=== PATIENT | male | born 1960 | race Caucasian/White ===

== ENCOUNTER 2018-03-01 14:27 | Emergency (ER) | payer MEDICARE, MEDICAID ==
[~2018-03-01] VITALS: Ht 177.8 cm; Wt 70.0 kg
[2018-03-01 14:33] VITALS: BP 109/78
== END 2018-03-01 15:24 | disposition left against medical advice (07) ==
LOC: ED 15:18
DX: F10.120 Alcohol abuse with intoxication, uncomplicated (principal); I10 Essential (primary) hypertension
CPT/HCPCS: 99283

== ENCOUNTER 2018-04-01 16:26 | Inpatient (IN) | payer MEDICARE, MEDICAID ==
[~2018-04-01] VITALS: Ht 170.2 cm; Wt 58.8 kg
[2018-04-01] MEDS ORDERED: SODIUM CHLORIDE FLUSH 10ML SYR IVF ONE (16:30)
[2018-04-01] MEDS ORDERED: FUROSEMIDE 40 MG/4 ML IVP ONE (16:30)
[2018-04-01] MEDS ORDERED: methylPREDNISolone SOD SUCC 125 MG/2 ML IVP ONE (16:30)
[2018-04-01] MEDS ORDERED: FUROSEMIDE 40 MG/4 ML ONE (16:45)
[2018-04-01] MEDS ORDERED: methylPREDNISolone SOD SUCC 125 MG/2 ML ONE (16:46)
[2018-04-01 17:17] LABS: BASOPHILS # (AUTO) 0.01 x10^3/uL (0-0.1); BASOPHILS % (AUTO) 0 % (0-1); EOSINOPHILS # (AUTO) 0.03 x10^3/uL (0-0.4); EOSINOPHILS % (AUTO) 0 % (1-7); LYMPHOCYTES # (AUTO) 1.56 x10^3/uL (1-3.4); LYMPHOCYTES % (AUTO) 19 % (22-44); MD NO; MEAN CORPUSCULAR HEMOGLOBIN 27.5 pg (27.5-34.5); MEAN CORPUSCULAR HGB CONC 32.1 g/dL (33.2-36.2); MEAN CORPUSCULAR VOLUME 85.9 fL (81-97); MEAN PLATELET VOLUME 8.1 fL (7.4-10.4); MONOCYTES # (AUTO) 0.63 x10^3/uL (0.2-0.8); MONOCYTES % (AUTO) 8 % (2-9); NEUTROPHILS # (AUTO) 6.15 x10^3/uL (1.8-6.8); NEUTROPHILS % (AUTO) 73 % (42-75); PLATELET COUNT 355 x10^3/uL (130-400); RED BLOOD COUNT 4.68 x10^6/uL (4.38-5.82); RED CELL DISTRIBUTION WIDTH 21.1 % (9.4-14.8)
[2018-04-01 17:20] LABS: INTERNATIONAL NORMALIZED RATIO 1.24 (0.93-1.1); PROTHROMBIN TIME 12.7 Seconds (9.6-11.5)
[2018-04-01] MEDS ORDERED: ATOR40TA78 PO (17:20)
[2018-04-01] MEDS ORDERED: PRED20TA PO (17:20)
[2018-04-01] MEDS ORDERED: SPIR25TA3 PO (17:20)
[2018-04-01] MEDS ORDERED: FURO20TA3 PO (17:20)
[2018-04-01] MEDS ORDERED: CARV-39 PO (17:20)
[2018-04-01] MEDS ORDERED: IPRA3AMP NEB (17:20)
[2018-04-01] MEDS ORDERED: BUDE10.2 PO (17:20)
[2018-04-01] MEDS ORDERED: RIVA20TA PO (17:20)
[2018-04-01] MEDS ORDERED: LISI-170 PO (17:20)
[2018-04-01] MEDS ORDERED: TIOT18CA INH (17:20)
[2018-04-01 17:22] LABS: ALANINE AMINOTRANSFERASE 86 U/L (12-78); ALBUMIN 2.9 g/dL (3.4-5.0); ANION GAP 8 mmol/L (5-15); CHLORIDE 103 mmol/L (98-107); CREATININE 0.94 mg/dL (0.7-1.3)
[2018-04-01 17:27] LABS: ALKALINE PHOSPHATASE 225 U/L (45-117); BILIRUBIN,TOTAL 2.5 mg/dL (0.2-1.0); TOTAL PROTEIN 6.3 g/dL (6.4-8.2); TROPONIN I 0.119 ng/mL (0.000-0.045)
[2018-04-01] MEDS ORDERED: ASPIRIN 81 MG TABLET CHEW ONE (17:40)
[2018-04-01] MEDS ORDERED: ASPIRIN 81 MG TABLET CHEW PO ONE (18:00)
[2018-04-01] MEDS ORDERED: Enoxaparin 1 mg/kg protocol SQ SCH (18:00)
[2018-04-01] MEDS ORDERED: ENOXAPARIN 40 MG/0.4 ML SQ SCH (18:30)
[2018-04-01] MEDS ORDERED: POLYETHYLENE GLYCOL 17 GM PACKET PO PRN (18:30)
[2018-04-01] MEDS ORDERED: BISACODYL 10 MG SUPP PR PRN (18:30)
[2018-04-01] MEDS ORDERED: ONDANSETRON 2MG/ML, 2ML IVPush PRN (18:30)
[2018-04-01] MEDS ORDERED: DOCUSATE 100 MG CAPSULE PO PRN (18:30)
[2018-04-01] MEDS ORDERED: hydrALAzine 20 MG/ML, 1ML IVPush PRN (18:30)
[2018-04-01 18:42] VITALS: BP 131/96
[2018-04-01] MEDS ORDERED: ENOXAPARIN 60 MG/0.6 ML SQ ONE (19:00)
[2018-04-01] MEDS ORDERED: ALBUTEROL/IPRATROPIUM 2.5MG/0.5MG, 3 ML NPPB PRN (20:00)
[2018-04-01] MEDS: ALBUTEROL/IPRATROPIUM 2.5MG/0.5MG, 3 ML NPPB SCH (20:00)
[2018-04-01 20:12] LABS: HEMOGLOBIN A1C 7.2 % (4.2-6.3)
[2018-04-01] MEDS: ATORVASTATIN 40 MG TABLET PO SCH (20:48)
[2018-04-01] MEDS: CARVEDILOL 25 MG TABLET PO SCH (20:49)
[2018-04-01] MEDS: SODIUM CHLORIDE FLUSH 10ML SYR IVF SCH (20:49)
[2018-04-01] MEDS ORDERED: ALBUTEROL/IPRATROPIUM 2.5MG/0.5MG, 3 ML NEB SCH (21:00)
[2018-04-01] MEDS: Budesonide/Formoterol Fumarate (Symbicort 160-4.5 Mcg Inhaler PO SCH (21:00)
[2018-04-01 21:09] LABS: TROPONIN I 0.104 ng/mL (0.000-0.045)
[2018-04-02 01:47] VITALS: BP 100/70
[2018-04-02 03:22] LABS: ALANINE AMINOTRANSFERASE 78 U/L (12-78); ALBUMIN 2.6 g/dL (3.4-5.0); ANION GAP 6 mmol/L (5-15); CALCIUM 8.9 mg/dL (8.5-10.1); CHLORIDE 101 mmol/L (98-107); CREATININE 1.01 mg/dL (0.7-1.3)
[2018-04-02 03:26] LABS: ALKALINE PHOSPHATASE 202 U/L (45-117); BILIRUBIN,TOTAL 1.7 mg/dL (0.2-1.0); TOTAL PROTEIN 5.9 g/dL (6.4-8.2); TROPONIN I 0.097 ng/mL (0.000-0.045)
[2018-04-02 04:27] LABS: BASOPHILS % (AUTO) 0 % (0-1); EOSINOPHILS % (AUTO) 0 % (1-7); LYMPHOCYTES # (AUTO) 0.53 x10^3/uL (1-3.4); LYMPHOCYTES % (AUTO) 9 % (22-44); MD NO; MEAN CORPUSCULAR HEMOGLOBIN 27.7 pg (27.5-34.5); MEAN CORPUSCULAR HGB CONC 32.4 g/dL (33.2-36.2); MEAN CORPUSCULAR VOLUME 85.6 fL (81-97); MONOCYTES # (AUTO) 0.03 x10^3/uL (0.2-0.8); MONOCYTES % (AUTO) 1 % (2-9); NEUTROPHILS # (AUTO) 5.44 x10^3/uL (1.8-6.8); NEUTROPHILS % (AUTO) 91 % (42-75); PLATELET COUNT 315 x10^3/uL (130-400); RED BLOOD COUNT 4.43 x10^6/uL (4.38-5.82); RED CELL DISTRIBUTION WIDTH 20.7 % (9.4-14.8)
[2018-04-02] MEDS: ALBUTEROL/IPRATROPIUM 2.5MG/0.5MG, 3 ML NPPB SCH ×4 (06:43→21:18)
[2018-04-02 07:28] VITALS: BP 113/77
[2018-04-02] MEDS: Budesonide/Formoterol Fumarate (Symbicort 160-4.5 Mcg Inhaler PO SCH (07:45)
[2018-04-02] MEDS: FUROSEMIDE 40 MG/4 ML IV SCH ×2 (07:50→16:54)
[2018-04-02] MEDS ORDERED: Tiotropium Bromide** (Spiriva**) 18 MCG INH SCH (09:00)
[2018-04-02] MEDS: FLUTICASONE/VILANTEROL 200-25MCG/INH INH SCH (09:44)
[2018-04-02] MEDS: LISINOPRIL 20 MG TABLET PO SCH (09:44)
[2018-04-02] MEDS: RIVAROXABAN 20 MG TABLET PO SCH (09:44)
[2018-04-02] MEDS: SODIUM CHLORIDE FLUSH 10ML SYR IVF SCH ×3 (09:45→20:16)
[2018-04-02] MEDS: CARVEDILOL 25 MG TABLET PO SCH ×2 (09:45→20:13)
[2018-04-02] MEDS: POTASSIUM CHLORIDE 20 MEQ PACKET PO SCH (09:45)
[2018-04-02] MEDS: SPIRONOLACTONE 25 MG TABLET PO SCH (09:49)
[2018-04-02] MEDS ORDERED: NICOTINE 14MG/24 HR PATCH.TD24 TD ONE (10:00)
[2018-04-02] MEDS ORDERED: IPRATROPIUM 0.5 MG/2.5 ML INHA NPPB SCH (11:00)
[2018-04-02 13:30] VITALS: BP 103/78
[2018-04-02] MEDS ORDERED: LIDODERM 5% PATCH TD ONE (14:52)
[2018-04-02] MEDS: LIDODERM 5% PATCH TD SCH (14:54)
[2018-04-02] MEDS: ACETAMINOPHEN 325 MG TABLET PO PRN (14:54)
[2018-04-02] MEDS ORDERED: GLUCAGON 1 MG IM PRN (19:00)
[2018-04-02] MEDS ORDERED: DEXTROSE 4 GM TAB.CHEW PO PRN (19:00)
[2018-04-02] MEDS ORDERED: DEXTROSE 50%, 50ML SYRINGE IVPush PRN (19:00)
[2018-04-02 19:18] VITALS: BP 101/68
[2018-04-02 20:10] VITALS: BP 112/75
[2018-04-02] MEDS: ATORVASTATIN 40 MG TABLET PO SCH (20:13)
[2018-04-02] MEDS: INSULIN LISPRO 100 UNITS/ML, PEN SQ-INSULIN SCH (21:11)
[2018-04-03 02:13] VITALS: BP 105/67
[2018-04-03 05:37] LABS: ALBUMIN 2.6 g/dL (3.4-5.0); ANION GAP 7 mmol/L (5-15); CALCIUM 8.5 mg/dL (8.5-10.1); CHLORIDE 100 mmol/L (98-107)
[2018-04-03 05:38] LABS: BASOPHILS # (AUTO) 0.02 x10^3/uL (0-0.1); BASOPHILS % (AUTO) 0 % (0-1); EOSINOPHILS # (AUTO) 0.07 x10^3/uL (0-0.4); EOSINOPHILS % (AUTO) 1 % (1-7); LYMPHOCYTES # (AUTO) 1.67 x10^3/uL (1-3.4); LYMPHOCYTES % (AUTO) 13 % (22-44); MD NO; MEAN CORPUSCULAR HEMOGLOBIN 27.1 pg (27.5-34.5); MEAN CORPUSCULAR HGB CONC 31.6 g/dL (33.2-36.2); MEAN CORPUSCULAR VOLUME 85.6 fL (81-97); MEAN PLATELET VOLUME 8.2 fL (7.4-10.4); MONOCYTES # (AUTO) 0.83 x10^3/uL (0.2-0.8); MONOCYTES % (AUTO) 7 % (2-9); NEUTROPHILS # (AUTO) 10.11 x10^3/uL (1.8-6.8); NEUTROPHILS % (AUTO) 80 % (42-75); PLATELET COUNT 310 x10^3/uL (130-400); RED BLOOD COUNT 4.42 x10^6/uL (4.38-5.82); RED CELL DISTRIBUTION WIDTH 20.6 % (9.4-14.8)
[2018-04-03 05:42] LABS: ALANINE AMINOTRANSFERASE 64 U/L (12-78); ALKALINE PHOSPHATASE 183 U/L (45-117); BILIRUBIN,TOTAL 0.9 mg/dL (0.2-1.0); CREATININE 0.87 mg/dL (0.7-1.3); TOTAL PROTEIN 5.5 g/dL (6.4-8.2)
[2018-04-03] MEDS: ALBUTEROL/IPRATROPIUM 2.5MG/0.5MG, 3 ML NPPB SCH ×4 (06:28→19:14)
[2018-04-03 07:15] VITALS: BP 108/75
[2018-04-03] MEDS: FUROSEMIDE 40 MG/4 ML IV SCH ×2 (08:44→16:38)
[2018-04-03] MEDS: POTASSIUM CHLORIDE 20 MEQ PACKET PO SCH (08:44)
[2018-04-03] MEDS: INSULIN LISPRO 100 UNITS/ML, PEN SQ-INSULIN SCH ×4 (08:44→22:19)
[2018-04-03] MEDS: SODIUM CHLORIDE FLUSH 10ML SYR IVF SCH ×4 (08:45→22:10)
[2018-04-03] MEDS: FLUTICASONE/VILANTEROL 200-25MCG/INH INH SCH (08:45)
[2018-04-03] MEDS: CARVEDILOL 25 MG TABLET PO SCH ×2 (08:46→22:11)
[2018-04-03] MEDS: SPIRONOLACTONE 25 MG TABLET PO SCH (08:46)
[2018-04-03] MEDS: RIVAROXABAN 20 MG TABLET PO SCH (08:46)
[2018-04-03] MEDS: LISINOPRIL 20 MG TABLET PO SCH (08:46)
[2018-04-03 13:50] VITALS: BP 101/75
[2018-04-03] MEDS ORDERED: NICOTINE 14MG/24 HR PATCH.TD24 TD ONE (14:30)
[2018-04-03 19:26] VITALS: BP 124/79
[2018-04-03] MEDS ORDERED: INSULIN GLARGINE 100 UNITS/ML, PEN SQ-INSULIN SCH (21:00)
[2018-04-03] MEDS: ATORVASTATIN 40 MG TABLET PO SCH (22:11)
[2018-04-03 22:15] VITALS: BP 122/81
[2018-04-03] MEDS: LIDODERM 5% PATCH TD SCH (22:20)
[2018-04-04 01:33] VITALS: BP 115/70
[2018-04-04 05:59] LABS: BASOPHILS % (AUTO) 0 % (0-1); EOSINOPHILS # (AUTO) 0.06 x10^3/uL (0-0.4); EOSINOPHILS % (AUTO) 1 % (1-7); LYMPHOCYTES # (AUTO) 1.86 x10^3/uL (1-3.4); LYMPHOCYTES % (AUTO) 15 % (22-44); MD NO; MEAN CORPUSCULAR HEMOGLOBIN 27.1 pg (27.5-34.5); MEAN CORPUSCULAR HGB CONC 31.8 g/dL (33.2-36.2); MEAN CORPUSCULAR VOLUME 85.3 fL (81-97); MEAN PLATELET VOLUME 8.1 fL (7.4-10.4); MONOCYTES % (AUTO) 7 % (2-9); NEUTROPHILS # (AUTO) 9.38 x10^3/uL (1.8-6.8); NEUTROPHILS % (AUTO) 78 % (42-75); PLATELET COUNT 276 x10^3/uL (130-400); RED BLOOD COUNT 4.51 x10^6/uL (4.38-5.82); RED CELL DISTRIBUTION WIDTH 21.1 % (9.4-14.8)
[2018-04-04 06:11] LABS: CHLORIDE 97 mmol/L (98-107)
[2018-04-04 06:22] LABS: ALANINE AMINOTRANSFERASE 56 U/L (12-78); ALBUMIN 2.4 g/dL (3.4-5.0); ALKALINE PHOSPHATASE 172 U/L (45-117); ANION GAP 8 mmol/L (5-15); BILIRUBIN,TOTAL 0.8 mg/dL (0.2-1.0); CALCIUM 8.6 mg/dL (8.5-10.1); CREATININE 0.85 mg/dL (0.7-1.3); TOTAL PROTEIN 5.3 g/dL (6.4-8.2)
[2018-04-04 08:40] VITALS: BP 110/71
[2018-04-04] MEDS: FUROSEMIDE 40 MG/4 ML IV SCH ×2 (08:48→16:28)
[2018-04-04] MEDS: LISINOPRIL 20 MG TABLET PO SCH (08:48)
[2018-04-04] MEDS: RIVAROXABAN 20 MG TABLET PO SCH (08:48)
[2018-04-04] MEDS: POTASSIUM CHLORIDE 20 MEQ PACKET PO SCH (08:48)
[2018-04-04] MEDS: SPIRONOLACTONE 25 MG TABLET PO SCH (08:48)
[2018-04-04] MEDS: SODIUM CHLORIDE FLUSH 10ML SYR IVF SCH ×4 (08:49→20:54)
[2018-04-04] MEDS: CARVEDILOL 25 MG TABLET PO SCH ×2 (08:49→20:52)
[2018-04-04] MEDS: INSULIN LISPRO 100 UNITS/ML, PEN SQ-INSULIN SCH ×4 (08:56→20:53)
[2018-04-04] MEDS: FLUTICASONE/VILANTEROL 200-25MCG/INH INH SCH (08:57)
[2018-04-04] MEDS: ALBUTEROL/IPRATROPIUM 2.5MG/0.5MG, 3 ML NPPB SCH ×4 (09:00→19:29)
[2018-04-04 11:17] VITALS: BP 101/64
[2018-04-04] MEDS: LIDODERM 5% PATCH TD SCH (16:29)
[2018-04-04] MEDS: ACETAMINOPHEN 325 MG TABLET PO PRN (16:35)
[2018-04-04 17:04] VITALS: BP 111/82
[2018-04-04] MEDS: ATORVASTATIN 40 MG TABLET PO SCH (20:51)
[2018-04-04] MEDS ORDERED: INSULIN GLARGINE 100 UNITS/ML, PEN SQ-INSULIN SCH (21:00)
[2018-04-04 21:20] VITALS: BP 105/70
[2018-04-05 01:45] VITALS: BP 112/73
[2018-04-05 06:41] LABS: ALBUMIN 2.5 g/dL (3.4-5.0); ANION GAP 6 mmol/L (5-15); CALCIUM 8.6 mg/dL (8.5-10.1); CHLORIDE 99 mmol/L (98-107)
[2018-04-05 06:43] LABS: CREATININE 0.68 mg/dL (0.7-1.3)
[2018-04-05] MEDS: INSULIN LISPRO 100 UNITS/ML, PEN SQ-INSULIN SCH ×2 (07:00→11:00)
[2018-04-05] MEDS ORDERED: GLIP5TAB10 PO (07:30)
[2018-04-05] MEDS ORDERED: FURO40TA6 PO (07:38)
[2018-04-05] MEDS: ALBUTEROL/IPRATROPIUM 2.5MG/0.5MG, 3 ML NPPB SCH ×2 (08:02→11:00)
[2018-04-05] MEDS: SODIUM CHLORIDE FLUSH 10ML SYR IVF SCH ×2 (09:00→09:46)
[2018-04-05] MEDS: FLUTICASONE/VILANTEROL 200-25MCG/INH INH SCH (09:00)
[2018-04-05] MEDS: SPIRONOLACTONE 25 MG TABLET PO SCH (09:45)
[2018-04-05] MEDS: POTASSIUM CHLORIDE 20 MEQ PACKET PO SCH (09:45)
[2018-04-05] MEDS: RIVAROXABAN 20 MG TABLET PO SCH (09:45)
[2018-04-05] MEDS: FUROSEMIDE 40 MG/4 ML IV SCH (09:45)
[2018-04-05] MEDS: CARVEDILOL 25 MG TABLET PO SCH (09:45)
[2018-04-05] MEDS: LISINOPRIL 20 MG TABLET PO SCH (09:45)
[2018-04-05 10:15] VITALS: BP 108/76
== END 2018-04-05 14:18 | DRG 291 ==
LOC: ED 17:38 → EDIP 17:47 → 5SO 18:41
PROVIDERS: ADMIT Emergency Medicine; ATTEND Hospitalist
DX: I11.0 Hypertensive heart disease with heart failure (principal); J96.21 Acute and chronic respiratory failure with hypoxia; E43 Unspecified severe protein-calorie malnutrition; E87.2 Acidosis; I24.8 Other forms of acute ischemic heart disease; J98.11 Atelectasis; E11.649 Type 2 diabetes mellitus with hypoglycemia without coma; Z68.20 Body mass index [BMI] 20.0-20.9, adult; E78.5 Hyperlipidemia, unspecified; F17.210 Nicotine dependence, cigarettes, uncomplicated; I25.10 Atherosclerotic heart disease of native coronary artery without angina pectoris; I25.2 Old myocardial infarction; J44.9 Chronic obstructive pulmonary disease, unspecified; K76.1 Chronic passive congestion of liver; Z79.82 Long term (current) use of aspirin; Z82.49 Family history of ischemic heart disease and other diseases of the circulatory system; Z83.3 Family history of diabetes mellitus; Z86.711 Personal history of pulmonary embolism; Z91.19 Patient's noncompliance with other medical treatment and regimen; I50.43 Acute on chronic combined systolic (congestive) and diastolic (congestive) heart failure; X58.XXXA Exposure to other specified factors, initial encounter; Y93.89 Activity, other specified; Y92.89 Other specified places as the place of occurrence of the external cause; Y99.8 Other external cause status
CPT/HCPCS: 36415; 71045; 71046; 71250; 80048; 80053; 82040; 82962; 83036; 83605; 83735; 83880; 84100; 84484; 85025; 85610; 85730; 93005; 94640; 96374; 96375; C8929; J1940; J7620; J1815; J2930

== ENCOUNTER 2018-08-31 07:09 | Inpatient (IN) | payer MEDICARE, MEDICAID ==
[~2018-08-31] VITALS: Ht 170.2 cm; Wt 60.6 kg
[~2018-08-31 07:09] MED LIST: ATOR40TA78 PO; BUDE10.2 PO; CARV-39 PO; FURO20TA3 PO; FURO40TA6 PO; GLIP5TAB10 PO; IPRA3AMP30 NEB; LISI-170 PO; PRED20TA PO; RIVA20TA PO; SPIR25TA5 PO; TIOT18CA INH
[2018-08-31] MEDS ORDERED: SODIUM CHLORIDE FLUSH 10ML SYR IVF ONE (07:30)
[2018-08-31 07:59] LABS: MEAN CORPUSCULAR HEMOGLOBIN 26.5 pg (27.5-34.5); MEAN CORPUSCULAR HGB CONC 31.4 g/dL (33.2-36.2); MEAN CORPUSCULAR VOLUME 84.3 fL (81-97); MEAN PLATELET VOLUME 8.2 fL (7.4-10.4); PLATELET COUNT 308 x10^3/uL (130-400); RED BLOOD COUNT 4.27 x10^6/uL (4.38-5.82); RED CELL DISTRIBUTION WIDTH 21.1 % (9.4-14.8)
[2018-08-31 08:03] LABS: INTERNATIONAL NORMALIZED RATIO 1.1 (0.93-1.1); PROTHROMBIN TIME 11.4 Seconds (9.6-11.5)
[2018-08-31 08:06] LABS: ALBUMIN 3.6 g/dL (3.4-5.0); ANION GAP 11 mmol/L (5-15); CALCIUM 9.2 mg/dL (8.5-10.1); CHLORIDE 100 mmol/L (98-107)
[2018-08-31 08:11] LABS: ALANINE AMINOTRANSFERASE 33 U/L (12-78); ALKALINE PHOSPHATASE 220 U/L (45-117); BILIRUBIN,TOTAL 2.6 mg/dL (0.2-1.0); CREATININE 1.11 mg/dL (0.7-1.3); TOTAL PROTEIN 7.3 g/dL (6.4-8.2); TROPONIN I 0.095 ng/mL (0.000-0.045)
[2018-08-31] MEDS ORDERED: FUROSEMIDE 20 MG/2 ML ONE (08:17)
[2018-08-31] MEDS ORDERED: FUROSEMIDE 40 MG/4 ML ONE (08:17)
[2018-08-31 08:21] LABS: MD YES
[2018-08-31 08:23] LABS: BAND#(MANUAL) 0.11 x10^3/uL; BANDS%(MANUAL) 1 % (0-7); EOS#(MANUAL) 0.11 x10^3/uL (0.0-0.4); EOS% (MANUAL) 1 % (1-7); LYMPH#(MANUAL) 0.66 x10^3/uL (1-3.4); LYMPHS% (MANUAL) 6 % (22-44); MONOS#(MANUAL) 0.55 x10^3/uL (0.3-2.7); MONOS% (MANUAL) 5 % (2-9); NRBC % (MANUAL) 1 % (0-1); SEG#(MANUAL) 9.57 x10^3/uL (1.8-6.8); SEGS% (MANUAL) 87 % (42-75)
[2018-08-31 08:24] LABS: ANISOCYTOSIS 1+; HYPOCHROMIA 1+; POLYCHROMASIA 1+
[2018-08-31 08:25] LABS: OVALOCYTES 1+
[2018-08-31 08:26] LABS: <PLATELET ESTIMATE> ADEQUATE; <PLT MORPHOLOGY> NORMAL PLT MORPH
[2018-08-31] MEDS ORDERED: FUROSEMIDE 100 MG/10 ML IV ONE (08:30)
[2018-08-31] MEDS ORDERED: SODIUM CHLORIDE FLUSH 10ML SYR IVF PRN (09:00)
[2018-08-31 10:00] VITALS: BP 131/82
[2018-08-31] MEDS ORDERED: ONDANSETRON ODT 4 MG PO PRN (11:00)
[2018-08-31] MEDS: INSULIN LISPRO 100 UNITS/ML, PEN SQ-INSULIN SCH ×3 (11:00→22:04)
[2018-08-31] MEDS ORDERED: ONDANSETRON 2MG/ML, 2ML IVPush PRN (11:00)
[2018-08-31] MEDS ORDERED: ALBUTEROL/IPRATROPIUM 2.5MG/0.5MG, 3 ML NPPB PRN (11:30)
[2018-08-31] MEDS ORDERED: ALBUTEROL/IPRATROPIUM 2.5MG/0.5MG, 3 ML NPPB SCH (11:30)
[2018-08-31 12:52] VITALS: BP 123/79
[2018-08-31] MEDS ORDERED: ASPI-650 PO (13:24)
[2018-08-31] MEDS ORDERED: HYDR10TA4 PO (13:24)
[2018-08-31] MEDS ORDERED: SITA50TA PO (13:24)
[2018-08-31] MEDS ORDERED: FURO20TA3 PO (13:24)
[2018-08-31 13:31] LABS: TROPONIN I 0.096 ng/mL (0.000-0.045)
[2018-08-31] MEDS: ALBUTEROL/IPRATROPIUM 2.5MG/0.5MG, 3 ML NPPB SCH ×2 (15:00→21:52)
[2018-08-31] MEDS ORDERED: CARVEDILOL 25 MG TABLET ONE ×2 (15:30→15:31)
[2018-08-31] MEDS ORDERED: SPIRONOLACTONE 25 MG TABLET ONE (15:30)
[2018-08-31] MEDS ORDERED: LISINOPRIL 20 MG TABLET ONE (15:30)
[2018-08-31] MEDS: hydrOXyzine 10MG TABLET PO PRN ×2 (15:34→21:37)
[2018-08-31] MEDS: SPIRONOLACTONE 25 MG TABLET PO SCH (15:34)
[2018-08-31] MEDS: LISINOPRIL 20 MG TABLET PO SCH (15:34)
[2018-08-31] MEDS: CARVEDILOL 25 MG TABLET PO SCH ×2 (15:35→21:36)
[2018-08-31] MEDS ORDERED: FUROSEMIDE 40 MG/4 ML IV SCH (17:00)
[2018-08-31 19:26] LABS: TROPONIN I 0.103 ng/mL (0.000-0.045)
[2018-08-31 19:47] VITALS: BP 93/69
[2018-08-31] MEDS ORDERED: CARVEDILOL 25 MG TABLET PO SCH (21:00)
[2018-08-31] MEDS: ATORVASTATIN 40 MG TABLET PO SCH (21:37)
[2018-09-01 01:01] VITALS: BP 93/69
[2018-09-01] MEDS ORDERED: ZOLPIDEM 10MG TABLET PO ONE (01:30)
[2018-09-01 04:17] VITALS: BP 100/65
[2018-09-01 05:05] LABS: MEAN CORPUSCULAR HEMOGLOBIN 26.5 pg (27.5-34.5); MEAN CORPUSCULAR HGB CONC 31.8 g/dL (33.2-36.2); MEAN CORPUSCULAR VOLUME 83.3 fL (81-97); MEAN PLATELET VOLUME 8.2 fL (7.4-10.4); PLATELET COUNT 235 x10^3/uL (130-400); RED BLOOD COUNT 3.73 x10^6/uL (4.38-5.82); RED CELL DISTRIBUTION WIDTH 20.9 % (9.4-14.8)
[2018-09-01 05:12] LABS: ALBUMIN 3.1 g/dL (3.4-5.0); ANION GAP 10 mmol/L (5-15); CALCIUM 8.8 mg/dL (8.5-10.1); CHLORIDE 99 mmol/L (98-107)
[2018-09-01 05:25] LABS: ALANINE AMINOTRANSFERASE 30 U/L (12-78); ALKALINE PHOSPHATASE 222 U/L (45-117); BILIRUBIN,TOTAL 1.5 mg/dL (0.2-1.0); CHOL/HDL RATIO 2.6; CHOLESTEROL, TOTAL 166 mg/dL (140-239); CREATININE 0.96 mg/dL (0.7-1.3); HDL CHOL % 38 % (26-37); HDL CHOLESTEROL (DIRECT) 63 mg/dL (40-60); LDL CHOLESTEROL,CALCULATED 78 mg/dL (54-169); LDL/HDL RATIO 1.2 (0.5-3.0); TOTAL PROTEIN 6.2 g/dL (6.4-8.2); TRIGLYCERIDES 125 mg/dL (50-200); VLDL CHOLESTEROL 25 mg/dL (0-25)
[2018-09-01 05:42] LABS: BASOPHILS # (AUTO) 0.06 x10^3/uL (0-0.1); BASOPHILS % (AUTO) 1 % (0-1); EOSINOPHILS # (AUTO) 0.17 x10^3/uL (0-0.4); EOSINOPHILS % (AUTO) 2 % (1-7); LYMPHOCYTES # (AUTO) 2.53 x10^3/uL (1-3.4); LYMPHOCYTES % (AUTO) 29 % (22-44); MD SCAN; MONOCYTES # (AUTO) 0.73 x10^3/uL (0.2-0.8); MONOCYTES % (AUTO) 8 % (2-9); NEUTROPHILS % (AUTO) 60 % (42-75)
[2018-09-01] MEDS: INSULIN LISPRO 100 UNITS/ML, PEN SQ-INSULIN SCH ×4 (07:00→21:00)
[2018-09-01 07:07] VITALS: BP 95/67
[2018-09-01] MEDS: ALBUTEROL/IPRATROPIUM 2.5MG/0.5MG, 3 ML NPPB SCH ×4 (07:30→19:10)
[2018-09-01] MEDS: ASPIRIN 325 MG TABLET EC PO SCH (08:42)
[2018-09-01] MEDS ORDERED: RIVAROXABAN 20 MG TABLET PO SCH (09:00)
[2018-09-01] MEDS ORDERED: TEMPLATE NON-FORMULARY MED. (Tiotropium Bromide** (Spiriva**) 18 MCG) INH SCH (09:00)
[2018-09-01] MEDS: FLUTICASONE/VILANTEROL 200-25MCG/INH INH SCH (09:00)
[2018-09-01] MEDS ORDERED: LISINOPRIL 20 MG TABLET PO SCH (09:00)
[2018-09-01] MEDS ORDERED: SPIRONOLACTONE 25 MG TABLET PO SCH (09:00)
[2018-09-01] MEDS ORDERED: ZOLP5TAB PO (09:42)
[2018-09-01] MEDS ORDERED: GABA300C10 PO (09:42)
[2018-09-01] MEDS ORDERED: BENZ100C PO (09:42)
[2018-09-01] MEDS ORDERED: TAMS0.4C2 PO (09:42)
[2018-09-01] MEDS: CARVEDILOL 25 MG TABLET PO SCH (09:47)
[2018-09-01] MEDS: SPIRONOLACTONE 25 MG TABLET PO SCH (09:48)
[2018-09-01] MEDS: LISINOPRIL 20 MG TABLET PO SCH (09:48)
[2018-09-01] MEDS: HEPARIN 5,000 UNITS/ML, 1ML SQ SCH ×2 (10:30→17:24)
[2018-09-01 13:58] VITALS: BP 90/59
[2018-09-01] MEDS ORDERED: GUAI600T80 PO (14:17)
[2018-09-01] MEDS ORDERED: FINA5TAB PO (14:17)
[2018-09-01] MEDS ORDERED: POTA10TA11 PO (14:21)
[2018-09-01] MEDS ORDERED: DEXT30SU8 PO (14:21)
[2018-09-01] MEDS ORDERED: NICO-487 TD (14:26)
[2018-09-01] MEDS ORDERED: MULT-658 PO (14:26)
[2018-09-01] MEDS ORDERED: BUME1TAB21 PO (14:26)
[2018-09-01 14:45] LABS: TROPONIN I 0.087 ng/mL (0.000-0.045)
[2018-09-01] MEDS: FUROSEMIDE 20 MG TABLET PO SCH (17:00)
[2018-09-01 19:27] VITALS: BP 99/59
[2018-09-01] MEDS: ZOLPIDEM 5MG TABLET PO SCH (20:59)
[2018-09-01] MEDS: hydrOXyzine 10MG TABLET PO PRN (20:59)
[2018-09-01] MEDS: ATORVASTATIN 40 MG TABLET PO SCH (20:59)
[2018-09-01] MEDS: CARVEDILOL 12.5 MG TABLET PO SCH (20:59)
[2018-09-02 02:00] VITALS: BP 112/77
[2018-09-02] MEDS: HEPARIN 5,000 UNITS/ML, 1ML SQ SCH ×3 (02:07→21:23)
[2018-09-02] MEDS: ALBUTEROL/IPRATROPIUM 2.5MG/0.5MG, 3 ML NPPB SCH ×4 (07:00→20:00)
[2018-09-02 07:16] VITALS: BP 110/79
[2018-09-02] MEDS: INSULIN LISPRO 100 UNITS/ML, PEN SQ-INSULIN SCH ×4 (07:53→21:38)
[2018-09-02] MEDS: FLUTICASONE/VILANTEROL 200-25MCG/INH INH SCH (07:53)
[2018-09-02] MEDS: GABAPENTIN 300 MG CAPSULE PO SCH (07:53)
[2018-09-02] MEDS: ASPIRIN 325 MG TABLET EC PO SCH (07:54)
[2018-09-02] MEDS: CARVEDILOL 12.5 MG TABLET PO SCH ×2 (07:54→21:23)
[2018-09-02] MEDS: SPIRONOLACTONE 25 MG TABLET PO SCH (07:55)
[2018-09-02] MEDS: TAMSULOSIN 0.4 MG CAP.ER.24H PO SCH (07:55)
[2018-09-02] MEDS: FUROSEMIDE 20 MG TABLET PO SCH ×2 (07:55→16:46)
[2018-09-02] MEDS: LISINOPRIL 10 MG TABLET PO SCH (07:55)
[2018-09-02 14:17] VITALS: BP 108/70
[2018-09-02 18:49] VITALS: BP 107/73
[2018-09-02] MEDS: ZOLPIDEM 5MG TABLET PO SCH (21:23)
[2018-09-02] MEDS: ATORVASTATIN 40 MG TABLET PO SCH (21:23)
[2018-09-03 00:54] VITALS: BP 106/71
[2018-09-03] MEDS: HEPARIN 5,000 UNITS/ML, 1ML SQ SCH ×2 (05:34→14:13)
[2018-09-03] MEDS: INSULIN LISPRO 100 UNITS/ML, PEN SQ-INSULIN SCH ×3 (07:00→16:40)
[2018-09-03] MEDS: ALBUTEROL/IPRATROPIUM 2.5MG/0.5MG, 3 ML NPPB SCH ×3 (07:35→15:15)
[2018-09-03] MEDS ORDERED: REGADENOSON 0.4 MG/5 ML SYRINGE ONE (08:41)
[2018-09-03 10:28] VITALS: BP 95/68
[2018-09-03] MEDS: FLUTICASONE/VILANTEROL 200-25MCG/INH INH SCH (10:52)
[2018-09-03] MEDS: GABAPENTIN 300 MG CAPSULE PO SCH (10:52)
[2018-09-03] MEDS: CARVEDILOL 12.5 MG TABLET PO SCH (10:52)
[2018-09-03] MEDS: FUROSEMIDE 20 MG TABLET PO SCH ×2 (10:52→16:35)
[2018-09-03] MEDS: TAMSULOSIN 0.4 MG CAP.ER.24H PO SCH (10:53)
[2018-09-03] MEDS: SPIRONOLACTONE 25 MG TABLET PO SCH (10:53)
[2018-09-03] MEDS: ASPIRIN 325 MG TABLET EC PO SCH (10:53)
[2018-09-03] MEDS: LISINOPRIL 10 MG TABLET PO SCH (10:53)
[2018-09-03 10:56] VITALS: BP 107/79
[2018-09-03 14:17] VITALS: BP 100/68
[2018-09-03] MEDS ORDERED: GABA300C10 PO (14:54)
[2018-09-03] MEDS ORDERED: TAMS0.4C2 PO (14:54)
[2018-09-03] MEDS ORDERED: LISI-170 PO (14:54)
[2018-09-03] MEDS ORDERED: FINA5TAB PO (14:54)
[2018-09-03] MEDS ORDERED: SPIR25TA5 PO (14:54)
[2018-09-03] MEDS ORDERED: HYDR10TA4 PO (14:54)
[2018-09-03] MEDS ORDERED: CARV-39 PO (14:54)
== END 2018-09-03 17:09 | disposition home health service (06) | DRG 291 ==
LOC: ED 08:34 → EDIP 08:35 → ED 09:09 → 5SO 09:41
PROVIDERS: ADMIT Internal Medicine; ATTEND Internal Medicine
DX: I11.0 Hypertensive heart disease with heart failure (principal); J96.21 Acute and chronic respiratory failure with hypoxia; E87.1 Hypo-osmolality and hyponatremia; I24.8 Other forms of acute ischemic heart disease; I42.9 Cardiomyopathy, unspecified; I50.43 Acute on chronic combined systolic (congestive) and diastolic (congestive) heart failure; D64.9 Anemia, unspecified; M19.90 Unspecified osteoarthritis, unspecified site; E11.9 Type 2 diabetes mellitus without complications; E78.5 Hyperlipidemia, unspecified; F10.21 Alcohol dependence, in remission; I25.10 Atherosclerotic heart disease of native coronary artery without angina pectoris; I34.0 Nonrheumatic mitral (valve) insufficiency; Z87.01 Personal history of pneumonia (recurrent); Z79.84 Long term (current) use of oral hypoglycemic drugs; Z82.49 Family history of ischemic heart disease and other diseases of the circulatory system; Z83.3 Family history of diabetes mellitus; Z87.891 Personal history of nicotine dependence; Z91.14 Patient's other noncompliance with medication regimen; Z99.81 Dependence on supplemental oxygen; Z59.0 Homelessness; Z79.82 Long term (current) use of aspirin; Z79.899 Other long term (current) drug therapy; Z79.01 Long term (current) use of anticoagulants
CPT/HCPCS: 36415; 71045; 78452; 80053; 80061; 82962; 83735; 83880; 84100; 84145; 84439; 84443; 84484; 85025; 85610; 85730; 93005; 93017; 94640; 96374; 99285; C8929; G0378; J1644; J1940; J2785; J7620; Q9957; A9502; C9898; J1815

== ENCOUNTER 2018-11-23 16:58 | Observation (INO) | payer MEDICARE, MEDICAID ==
[~2018-11-23] VITALS: Ht 167.6 cm; Wt 52.3 kg
[~2018-11-23 16:58] MED LIST changes: +ASPI-650 PO; +BENZ100C PO; +BUME1TAB21 PO; +DEXT30SU8 PO; +FINA5TAB PO; +GABA300C10 PO; +GUAI600T80 PO; +HYDR10TA4 PO; +MULT-658 PO; +NICO-487 TD; +POTA10TA11 PO; +SITA50TA PO; +TAMS0.4C2 PO; +ZOLP5TAB PO
[2018-11-23] MEDS ORDERED: ASPIRIN 81 MG TABLET CHEW PO ONE (17:30)
--- NOTE | 2018-11-23 17:48 | NUR ---
Pt ambulates to bathroom with personal cane with steady gait and balance.
[2018-11-23 17:54] LABS: MEAN CORPUSCULAR HEMOGLOBIN 25.7 pg (27.5-34.5); MEAN CORPUSCULAR VOLUME 80.2 fL (81-97); MEAN PLATELET VOLUME 7.8 fL (7.4-10.4); PLATELET COUNT 368 x10^3/uL (130-400); RED BLOOD COUNT 4.92 x10^6/uL (4.38-5.82); RED CELL DISTRIBUTION WIDTH 21.8 % (9.4-14.8)
--- NOTE | 2018-11-23 17:54 | NUR ---
LATE NOTE ENTRY FOR 1701: Pt brought in by EMS with c/o increased shortness of breath and center of chest pain that does not radiate. Pt states, "I started having chest pain right here (points to center chest) around 1 this afternoon. I wear oxygen at home, I am suppose to be on 3L but it has been harder to breathe so I have been on 5 L. I was in the hospital in September and had a liter of fluid pulled off of my lungs. I have been coughing up stuff but it is clear." Pt has 18 g PIV in Right AC placed prior to arrival by EMS. Pt is AOx4, has steady gait and balance, is on 3L of oxygen via nasal cannula and spo2% 100%. Pt took 325 mg of ASA at home prior to EMS arrival. Pt connected to all monitors and on 3L oxygen via nasal cannula. All safety measures in place. Call light within reach. No needs expressed at this time.
[2018-11-23 17:57] LABS: INTERNATIONAL NORMALIZED RATIO 0.93 (0.93-1.1); PROTHROMBIN TIME 9.9 Seconds (9.6-11.5)
[2018-11-23 17:58] LABS: ALANINE AMINOTRANSFERASE 18 U/L (12-78); ALBUMIN 3.5 g/dL (3.4-5.0); ANION GAP 4 mmol/L (5-15); CALCIUM 9.6 mg/dL (8.5-10.1); CHLORIDE 101 mmol/L (98-107); CREATININE 0.73 mg/dL (0.7-1.3)
--- NOTE | 2018-11-23 17:59 | NUR ---
Provided ice chips and water per pt request. EDMD aware.
--- NOTE | 2018-11-23 18:01 | NUR ---
NON-Admin of medication per EMAR due to pt having taken 325 mg of ASA prior to arrival. ED MD aware.
[2018-11-23 18:02] LABS: ALKALINE PHOSPHATASE 160 U/L (45-117); BILIRUBIN,TOTAL 0.9 mg/dL (0.2-1.0); TOTAL PROTEIN 7.4 g/dL (6.4-8.2); TROPONIN I 0.059 ng/mL (0.000-0.045)
[2018-11-23 18:07] LABS: MD YES
[2018-11-23 18:09] LABS: ANISOCYTOSIS 1+; BANDS%(MANUAL) 4 % (0-7); EOS#(MANUAL) 0.15 x10^3/uL (0.0-0.4); EOS% (MANUAL) 1 % (1-7); LYMPH#(MANUAL) 0.75 x10^3/uL (1-3.4); LYMPHS% (MANUAL) 5 % (22-44); MONOS#(MANUAL) 0.75 x10^3/uL (0.3-2.7); MONOS% (MANUAL) 5 % (2-9); SEG#(MANUAL) 12.67 x10^3/uL (1.8-6.8); SEGS% (MANUAL) 85 % (42-75)
[2018-11-23 18:10] LABS: <PLATELET ESTIMATE> ADEQUATE; <PLT MORPHOLOGY> NORMAL PLT MORPH; OVALOCYTES 1+
[2018-11-23] MEDS ORDERED: CARV-39 PO (18:48)
[2018-11-23] MEDS ORDERED: METFORMIN PO (18:48)
--- NOTE | 2018-11-23 19:01 | NUR ---
Provided bedside report to HAWK Traore. All questions answered.
[2018-11-23] MEDS ORDERED: SODIUM CHLORIDE FLUSH 10ML SYR IVF PRN (19:30)
--- NOTE | 2018-11-23 19:32 | NUR ---
REPORT GIVEN TO HAWK YOUNG
[2018-11-23] MEDS ORDERED: KETOROLAC 30 MG/1 ML IV PRN (20:00)
[2018-11-23] MEDS ORDERED: LIDODERM 5% PATCH TD PRN (20:00)
[2018-11-23] MEDS ORDERED: DOCUSATE 100 MG CAPSULE PO PRN (20:00)
[2018-11-23] MEDS ORDERED: TRAZODONE 50MG TABLET PO PRN (20:00)
[2018-11-23] MEDS ORDERED: ONDANSETRON ODT 4 MG PO PRN (20:00)
[2018-11-23] MEDS ORDERED: ACETAMINOPHEN 325 MG TABLET PO PRN (20:00)
[2018-11-23] MEDS ORDERED: hydrALAzine 20 MG/ML, 1ML IVPush PRN (20:00)
[2018-11-23] MEDS: HEPARIN 5,000 UNITS/ML, 1ML SQ SCH (21:25)
[2018-11-23 22:20] VITALS: BP 104/68
[2018-11-23 23:42] LABS: TROPONIN I 0.261 ng/mL (0.000-0.045)
[2018-11-24] MEDS ORDERED: HEPARIN 25,000 UNITS/500ML PMX 500 ML IV PRN (00:30)
[2018-11-24] MEDS ORDERED: HEPARIN 5,000 UNITS/ML, 1ML IV PRN (00:30)
[2018-11-24] MEDS: HEPARIN 5,000 UNITS/ML, 1ML SQ SCH (00:54)
[2018-11-24 00:55] VITALS: BP 94/58
[2018-11-24 06:32] LABS: MEAN CORPUSCULAR HEMOGLOBIN 25.4 pg (27.5-34.5); MEAN CORPUSCULAR HGB CONC 31.7 g/dL (33.2-36.2); MEAN PLATELET VOLUME 7.7 fL (7.4-10.4); PLATELET COUNT 312 x10^3/uL (130-400); RED BLOOD COUNT 4.09 x10^6/uL (4.38-5.82); RED CELL DISTRIBUTION WIDTH 21.6 % (9.4-14.8)
[2018-11-24 06:42] LABS: MD YES
[2018-11-24 06:44] LABS: ANION GAP 6 mmol/L (5-15); CALCIUM 8.8 mg/dL (8.5-10.1); CHLORIDE 102 mmol/L (98-107); EOS% (MANUAL) 2 % (1-7); LYMPH#(MANUAL) 1.31 x10^3/uL (1-3.4); LYMPHS% (MANUAL) 13 % (22-44); MONOS#(MANUAL) 0.71 x10^3/uL (0.3-2.7); MONOS% (MANUAL) 7 % (2-9); SEG#(MANUAL) 7.88 x10^3/uL (1.8-6.8); SEGS% (MANUAL) 78 % (42-75)
[2018-11-24 06:45] LABS: ANISOCYTOSIS 1+; OVALOCYTES 1+
[2018-11-24 06:46] LABS: <PLATELET ESTIMATE> ADEQUATE; <PLT MORPHOLOGY> NORMAL PLT MORPH; POLYCHROMASIA 1+
[2018-11-24 06:48] LABS: CREATININE 0.65 mg/dL (0.7-1.3); TROPONIN I 0.278 ng/mL (0.000-0.045)
[2018-11-24] MEDS ORDERED: ALBUTEROL/IPRATROPIUM 2.5MG/0.5MG, 3 ML NPPB SCH (07:00)
[2018-11-24 07:38] VITALS: BP 99/65
[2018-11-24] MEDS ORDERED: BUDESONIDE 0.5 MG/2 ML INHA NPPB SCH (09:00)
[2018-11-24] MEDS ORDERED: NITROGLYCERIN 0.4 MG BOTTLE (25 TABS) SL PRN (09:30)
== END 2018-11-24 10:49 | disposition home or self-care (01) ==
LOC: ED 17:11 → EDIP 19:14 → INTOOBSV 19:14 → 5SO 20:21
PROVIDERS: ADMIT Internal Medicine; ATTEND Internal Medicine
DX: R07.89 Other chest pain (principal); E11.9 Type 2 diabetes mellitus without complications; I50.42 Chronic combined systolic (congestive) and diastolic (congestive) heart failure; I11.0 Hypertensive heart disease with heart failure; F17.210 Nicotine dependence, cigarettes, uncomplicated; I25.110 Atherosclerotic heart disease of native coronary artery with unstable angina pectoris; I25.2 Old myocardial infarction; J44.9 Chronic obstructive pulmonary disease, unspecified; M19.90 Unspecified osteoarthritis, unspecified site; Z80.0 Family history of malignant neoplasm of digestive organs; Z80.8 Family history of malignant neoplasm of other organs or systems; Z83.3 Family history of diabetes mellitus; Z91.14 Patient's other noncompliance with medication regimen; Z99.81 Dependence on supplemental oxygen
CPT/HCPCS: 36415; 71045; 80048; 80053; 83880; 84484; 85025; 85520; 85610; 85730; 93005; 94640; 96365; 96366; 96372; 96376; 99284; G0378; J1644; J7620; J7626